=== PATIENT | male | born 1985 | race Caucasian/White ===

== ENCOUNTER 2020-06-07 09:18 | Emergency (ER) | payer OTHER ==
[~2020-06-07] VITALS: Ht 170.2 cm; Wt 69.0 kg
[2020-06-07] MEDS ORDERED: MAALOX/HYOSCYAMINE/LIDOCAINE 45 ML BTL PO ONE (09:30)
[2020-06-07] MEDS ORDERED: FAMOTIDINE 20 MG TABLET PO ONE (09:30)
[2020-06-07] MEDS ORDERED: MAALOX/HYOSCYAMINE/LIDOCAINE 45 ML BTL ONE (09:35)
[2020-06-07] MEDS ORDERED: FAMOTIDINE 20 MG/2 ML ONE (09:35)
[2020-06-07 10:02] LABS: ALANINE AMINOTRANSFERASE 13 U/L (12-78); ALBUMIN 4.4 g/dL (3.4-5.0); ANION GAP 8 mmol/L (5-15); CALCIUM 9.1 mg/dL (8.5-10.1); CHLORIDE 109 mmol/L (98-107)
[2020-06-07 10:04] LABS: ALKALINE PHOSPHATASE 59 U/L (45-117); BILIRUBIN,TOTAL 0.9 mg/dL (0.2-1.0); CREATININE 1.05 mg/dL (0.7-1.3); TOTAL PROTEIN 7.8 g/dL (6.4-8.2)
[2020-06-07 10:10] LABS: BASOPHILS % (AUTO) 1 % (0-1); EOSINOPHILS % (AUTO) 0 % (1-7); LYMPHOCYTES % (AUTO) 20 % (22-44); MD NO; MEAN CORPUSCULAR HEMOGLOBIN 21.3 pg (27.5-34.5); MEAN CORPUSCULAR HGB CONC 31.7 g/dL (33.2-36.2); MONOCYTES % (AUTO) 6 % (2-9); NEUTROPHILS % (AUTO) 73 % (42-75); PLATELET COUNT 319 x10^3/uL (130-400); RED BLOOD COUNT 6.57 x10^6/uL (4.38-5.82)
--- NOTE | 2020-06-07 10:14 | NUR ---
PT RESTING IN BED. VSS. NO ACUTE DISTRESS NOTED.
--- NOTE | 2020-06-07 10:23 | NUR ---
PT GIVEN SNACKS.VSS
[2020-06-07 10:42] VITALS: BP 127/79
== END 2020-06-07 10:48 | disposition home or self-care (01) ==
LOC: ED 09:48
DX: R11.2 Nausea with vomiting, unspecified (principal); R55 Syncope and collapse; R51.9 Headache, unspecified; R00.0 Tachycardia, unspecified; R63.0 Anorexia; F17.200 Nicotine dependence, unspecified, uncomplicated; Z90.89 Acquired absence of other organs; Z68.23 Body mass index [BMI] 23.0-23.9, adult
CPT/HCPCS: 36415; 80053; 85025; 93005; 99284